=== PATIENT | female | born 1965 | race Caucasian/White ===

== ENCOUNTER 2017-11-17 14:53 | Emergency (ER) | payer OTHER ==
[~2017-11-17] VITALS: Ht 157.5 cm; Wt 78.0 kg
[2017-11-17 14:55] VITALS: Ht 157.5 cm; Wt 78.0 kg
[2017-11-17] MEDS ORDERED: METOCLOPRAMIDE 10 MG INJ IV STA (19:24)
[2017-11-17] MEDS ORDERED: SOD CHLORIDE 0.9% 1,000 ML IV STA (19:24)
[2017-11-17] MEDS ORDERED: morphine 4 MG/ML VIAL IV STA (19:24)
[2017-11-17] MEDS ORDERED: DIPHENHYDRAMINE 25 MG CAP PO ONE (19:30)
[2017-11-17] MEDS ORDERED: HYDROmorphONE 2 MG TAB PO ONE (19:30)
[2017-11-17] MEDS ORDERED: ATEN50TA PO (19:56)
[2017-11-17] MEDS ORDERED: OXYC-209 PO ×2 (19:56→21:55)
[2017-11-17] MEDS ORDERED: BUPR300T36 PO (19:57)
[2017-11-17] MEDS ORDERED: CARI350T29 PO (19:57)
[2017-11-17] MEDS ORDERED: DIAZ5TAB4 PO (19:58)
[2017-11-17] MEDS ORDERED: GABA-526 PO (19:59)
[2017-11-17] MEDS ORDERED: DOXY100T20 PO (19:59)
[2017-11-17] MEDS ORDERED: HYDR-3011 PO (20:00)
[2017-11-17] MEDS ORDERED: LOPE-123 PO (20:01)
[2017-11-17] MEDS ORDERED: ONDA4TAB8 PO (20:01)
[2017-11-17] MEDS ORDERED: OXYC40TA26 PO (20:02)
[2017-11-17] MEDS ORDERED: PREG150C PO (20:02)
[2017-11-17] MEDS ORDERED: TOPI25CA2 PO (20:03)
[2017-11-17 20:06] LABS: BASOPHILS % 0.3 % (0.0-2.0); EOSINOPHILS # 0.1 10^3/ul (0.0-0.5); EOSINOPHILS % 1.7 % (0.0-7.0); HEMATOCRIT 37.1 % (37.0-47.0); HEMOGLOBIN 12.9 g/dl (12.0-16.0); LYMPHOCYTES # 2.1 10^3/ul (0.8-2.9); LYMPHOCYTES % 30.1 % (15.0-51.0); MEAN CORPUSCULAR HEMOGLOBIN 30.5 pg (29.0-33.0); MEAN CORPUSCULAR HGB CONC 34.8 g/dl (32.0-37.0); MEAN CORPUSCULAR VOLUME 87.7 fl (82.0-101.0); MEAN PLATELET VOLUME 8.8 fl (7.4-10.4); MONOCYTE # 0.5 10^3/ul (0.3-0.9); MONOCYTES % 7.1 % (0.0-11.0); NEUTROPHIL # 4.2 10^3/ul (1.6-7.5); NEUTROPHILS % 60.1 % (39.0-77.0); PLATELET COUNT 446 10^3/UL (140-415); RED BLOOD COUNT 4.23 10^6/ul (4.20-5.40); RED CELL DISTRIBUTION WIDTH 14.5 % (11.5-14.5); WHITE BLOOD COUNT 6.9 10^3/ul (4.8-10.8)
[2017-11-17 20:22] LABS: ALBUMIN 4.1 g/dl (3.3-4.9); ALBUMIN/GLOBULIN RATIO 1.28; BILIRUBIN,INDIRECT 0.3 mg/dl (0-1.1); BILIRUBIN,TOTAL 0.3 mg/dl (0.2-1.3); CALCIUM 9.1 mg/dl (8.4-10.2); CREATININE 0.76 mg/dl (0.44-1.00); POTASSIUM 3.9 mmol/L (3.5-5.1); TOTAL PROTEIN 7.3 g/dl (6.1-8.1)
[2017-11-17 21:18] VITALS: BP 101/57; PULSE 79; RESP 14; TEMP 98.3
[2017-11-17] MEDS ORDERED: PROM50TA5 PO (21:55)
[2017-11-17] MEDS ORDERED: DIAZ10TA4 PO (21:56)
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
== END 2017-11-17 22:08 | disposition home or self-care (01) ==
LOC: E/R 14:53
DX: F11.23 Opioid dependence with withdrawal (principal); J45.909 Unspecified asthma, uncomplicated; R40.2252 Coma scale, best verbal response, oriented, at arrival to emergency department; R40.2142 Coma scale, eyes open, spontaneous, at arrival to emergency department; R40.2362 Coma scale, best motor response, obeys commands, at arrival to emergency department
CPT/HCPCS: 36415; 80053; 83690; 85025; 96374; 96375; J1170; J2270; J2765; J7030; Z7502; Z7610

== ENCOUNTER 2017-11-28 13:40 | Inpatient (IN) | END 2017-12-07 21:07 | DRG 689 ==

== ENCOUNTER 2018-03-15 16:10 | Emergency (ER) | END 2018-03-15 18:51 | disposition home or self-care (01) ==

== ENCOUNTER 2018-03-16 21:50 | Emergency (ER) | END 2018-03-17 02:05 | disposition home or self-care (01) ==

== ENCOUNTER 2018-05-09 16:37 | Emergency (ER) | END 2018-05-09 22:07 | disposition home or self-care (01) ==